=== PATIENT | male | born 1950 | race Caucasian/White ===

== ENCOUNTER 2019-03-10 09:38 | Day surgery (SDC) | payer MEDICARE, BC ==
[~2019-03-10] VITALS: Ht 180.3 cm; Wt 97.7 kg
[2019-03-10 09:57] LABS: HEMATOCRIT 42.2 % (42.0-54.0); MCH 33.8 pg (26.0-34.0); MCHC 35.5 g/dL (31.0-37.0); MEAN PLATELET VOLUME 11.4 fL (7.4-10.4); RBC 4.44 10x6/uL (4.20-6.10); RDW 12.9 % (11.5-14.5); WBC 8.7 10x3/uL (4.8-10.8)
[2019-03-10 10:06] LABS: ANION GAP 12.9 mmol/L (8-16); CALCIUM 9.2 mg/dL (8.5-10.1); CARBON DIOXIDE 28.8 mmol/L (21.0-32.0); CREATININE - SERUM 1.1 mg/dL (0.6-1.3); POTASSIUM - SERUM 4.7 mmol/L (3.5-5.1)
[2019-03-10] MEDS ORDERED: LISINOPRIL10 MG PO (13:00)
[2019-03-10] MEDS ORDERED: LEVOTHYROXINE150 MCG PO (13:00)
[2019-03-10] MEDS ORDERED: CYMBALTA60 MG PO (13:01)
[2019-03-10] MEDS ORDERED: GLUCOPHAGE500 MG PO (13:01)
[2019-03-10] MEDS ORDERED: ZOCOR20 MG PO (13:02)
[2019-03-10] MEDS ORDERED: ULTRAM50 MG PO (13:03)
[2019-03-10] MEDS ORDERED: EFFEXOR XR37.5 MG PO (13:04)
[2019-03-10 13:28] VITALS: BP 152/83; Ht 180.3 cm; Wt 97.7 kg
--- NOTE | 2019-03-13 17:12 | OP ---
PATIENT NAME: BALWINDER ROB MEDICAL RECORD: [id number] :50 LOCATION:D.[facility] ADMISSION DATE: SURGEON: TIGRE VAIL MD DATE OF OPERATION: 03/10/2019 PREOPERATIVE DIAGNOSIS: History of a cecal polyp as well as a polyp on the ileocecal valve. POSTOPERATIVE DIAGNOSES: 1. History of a cecal polyp as well as a polyp on the ileocecal valve, with regrowth of the cecal polyp, but no regrowth of the ileocecal valve polyp. 2. A total of 6 other polyps, which were ablated. PROCEDURES: 1. Total colonoscopy to cecum. 2. Hot biopsy forceps polypectomies times 2. 3. Ablation of colorectal polyps times 6 with the argon plasma through operator. 4. Placement of 2 endoscopic clips for hemostasis. SURGEON: Tigre Vail MD GEODUCK DIVER: None. BLOOD LOSS: Minimal. ANESTHESIA: IV sedation. COMPLICATIONS: None. The risks, possible complications and alternatives to the procedure were explained to the patient. He elects to proceed. The discussion specifically included, but was not limited to, bleeding requiring emergency reoperation, and endoscopic perforation. ENDOSCOPIC COURSE: The patient was conveyed to endoscopy suite electively on 03/10/2019. IV sedation was induced by the anesthesia staff. The patient was placed in the Vazquez position. A digital rectal examination was performed. A colonoscope was inserted through the anus. It was easily advanced to the cecum. Upon withdrawal, I irrigated and aspirated extensively. The prep was inadequate. I intubated the ileum and it appeared normal. It was an Endoscopic clip on the cecum. At the base of the endoscopic clip, there was a recurrent and/or persistent polypoid tissue. Cold endoscopic biopsies were performed. A hot biopsy forceps polypectomy was then performed. There was some bleeding and I tried to control this with the argon plasma through operator. Ultimately, this required placement of 2 endoscopic clips. I slowly withdrew the endoscope. I used a combination of normal imaging and narrow band imaging. I dragged the folds. I irrigated and aspirated extensively. The pullback was greater than 18-minute pullback. A total of 6 small polyps, all less than 8 mm and all sessile were ablated with the argon plasma through operator utilizing the right colon setting in the forced mode. A polyp was noted at 50 cm. This was removed utilizing hot biopsy forceps polypectomy technique. A retroflexed view was obtained in the rectum. I then unretroflexed the scope and removed it under direct vision. OPERATIVE REPORT [id number] BALWINDER ROB I will see the patient in my office in 2-3 weeks. I will plan for his next colonoscopy to take place in 1 year. TRANSINT:[id number] Voice Confirmation ID: [id number] DOCUMENT ID: [id number] TIGRE VAIL MD at 1712 CC: [id number] DICTATION DATE: 03/10/19 1633 ENGINE LATHE SET UP OPERATOR TOOL: 03/11/19 0037 [facility] 03/10/19 [id number] [place] [address]
== END 2019-03-10 19:48 | disposition home or self-care (01) ==
LOC: D.OPS 09:38
PROVIDERS: Anesthesiology; ATTEND Surgery
DX: D12.5 Benign neoplasm of sigmoid colon (principal); K63.5 Polyp of colon; Z01.812 Encounter for preprocedural laboratory examination

== ENCOUNTER 2020-02-16 09:54 | Day surgery (SDC) | payer MEDICARE, BC ==
[~2020-02-16] VITALS: Ht 182.9 cm; Wt 99.1 kg
--- NOTE | ~2020-02-16 | OP ---
PATIENT NAME: BALWINDER ROB MEDICAL RECORD: [id number] :50 LOCATION:D.[facility] ADMISSION DATE: SURGEON: GORDON VAIL MD DATE OF OPERATION: 02/16/2020 PREOPERATIVE DIAGNOSIS: History of colon polyps, in need of surveillance colonoscopy. POSTOPERATIVE DIAGNOSES: 1. History of colon polyps, in need of surveillance colonoscopy. 2. No regrowth of the cecal polyp and the clip that was present has fallen off. 3. Inadequate prep. 4. Multiple lower colon and rectal polyps, all sessile polyps, all less than 1 cm. 5. One polyp that appeared to be a serrated adenoma. PROCEDURES: 1. Total colonoscopy to cecum. 2. Hot biopsy forceps polypectomy times 1. 3. Ablation of 20 sessile polyps with the argon plasma leaf conditioner helper with the right colon setting in the forced mode. The risks, possible complications and alternatives to the procedure were explained to the patient. He elects to proceed. The discussion specifically included, but was not limited to, bleeding requiring emergency reoperation, infection, endoscopic perforation. OPERATIVE COURSE: The patient was conveyed to the operating room electively on 02/16/2020. General anesthesia was induced by anesthesia staff. The patient was placed in the Vazquez position. A digital rectal examination was performed. The prostate was symmetric and without nodules. A colonoscope was inserted through the anus. It was easily advanced to the cecum. The prep was inadequate at the right side of the colon. I irrigated and aspirated extensively. I dragged the folds. The pullback was greater than a 20-minute pullback. I noted one polyp that appeared to be a serrated adenoma. It was removed in its entirety utilizing the hot biopsy forceps polypectomy technique. In the lower colon and rectum, multiple sessile polyps were noted. These were so small they did not warrant biopsy and examination pathologically. They were best seen with narrow band imaging. I ablated 20 these polyps with the argon plasma leaf conditioner helper utilizing the right colon setting in the forced mode. A retroflexed view was obtained in the rectum. I then unretroflexed the scope and removed it under direct vision. I will see the patient in my office in 2-3 weeks. I will plan for his next colonoscopy to take place in 3 years. TRANSINT:[id number] Voice Confirmation ID: [id number] DOCUMENT ID: [id number] OPERATIVE REPORT [id number] BALWINDER ROB ROBERT MD CC: MARIA L GARCIA MD [id number] DICTATION DATE: 02/16/20 1256 PHOTO MASK PATTERN GENERATOR: 02/17/20 0010 [facility] [place] 02/16/20 [id number] [place] [address]
--- NOTE | ~2020-02-16 | HP ---
PATIENT: BALWINDRE ROB MEDICAL RECORD: [id number] ACCOUNT: [id number] LOCATION:[facility] : 50 ADMISSION DATE: 02/16/20 PCP: MARIA L GARCIA MD HISTORY AND PHYSICAL EXAMINATION CHIEF COMPLAINT: History of polyp. HISTORY OF PRESENT ILLNESS: The patient had a recurrent cecal polyp as well as a polyp on the ileocecal valve. There have been regrowth of the cecal polyp but no regrowth of the ileocecal valve polyp when I did his endoscopy about a year ago on 03/10/2019. Also, ablated 6 colorectal polyps. At that time, the pathology on the cecal polyp was fragments of a hyperplastic polyp. There was another polyp at 40 cm, which was a tubular adenoma and a part of a serrated adenoma. He has had no symptoms. No melena. No hematochezia. He is here for surveillance colonoscopy. HOME MEDICINES: Lisinopril, metformin, Cymbalta, tramadol, levothyroxine. ALLERGIES: No known drug allergies. SOCIAL HISTORY: Smoker. The patient uses medical marijuana. PAST MEDICAL AND SURGICAL HISTORY: Sleep apnea, hypertension, noninsulin-dependent diabetes mellitus, history of thyroidectomy. PHYSICAL EXAMINATION: GENERAL: The patient does not appear acutely ill. He does not appear chronically ill. VITAL SIGNS: Reviewed. EARS: External ears appear normal. EYES: Extraocular movements are intact. NECK: Trachea is midline. CHEST: No intercostal retractions. PULMONARY: Nonlabored, no stridor. IMPRESSION: History of colon polyps including a recurrent polyp in cecum. PLAN: Colonoscopy. TRANSINT:[id number] Voice Confirmation ID: [id number] DOCUMENT ID: [id number] GORDON VAIL MD CC: MARIA L GARCIA MD [id number] DICTATION DATE: 02/16/20 1210 TRAVELING SALES EXECUTIVE: 02/16/20 1603 [facility] [place] 02/16/20 [facility] [address] [place] [address]
[~2020-02-16 09:54] MED LIST: CYMBALTA60 MG PO; EFFEXOR XR37.5 MG PO; GLUCOPHAGE500 MG PO; LEVOTHYROXINE150 MCG PO; LISINOPRIL10 MG PO; ULTRAM50 MG PO; ZOCOR20 MG PO
[2020-02-16 10:08] LABS: BASOPHILS 0.2 % (0-2); EOSINOPHILS 1.7 % (0-7); HEMATOCRIT 48.3 % (42.0-54.0); IMMATURE GRANULOCYTES 0.7 % (0-5); LYMPHOCYTES 26.9 % (15-50); MCH 32.1 pg (26.0-34.0); MCHC 33.1 g/dL (31.0-37.0); MCV 96.8 fL (80.0-100.0); MEAN PLATELET VOLUME 11.2 fL (7.4-10.4); MONOCYTES 11.4 % (2-11); NEUTROPHILS 59.1 % (40-80); PLATELET COUNT 265 10x3/uL (130-400); RBC 4.99 10x6/uL (4.20-6.10); RDW 13.6 % (11.5-14.5); WBC 11.5 10x3/uL (4.8-10.8)
[2020-02-16 10:25] LABS: ANION GAP 13.9 mmol/L (8-16); CALCIUM 9.4 mg/dL (8.5-10.1); CARBON DIOXIDE 28.7 mmol/L (21.0-32.0); CREATININE - SERUM 1.5 mg/dL (0.6-1.3); POTASSIUM - SERUM 4.6 mmol/L (3.5-5.1)
[2020-02-16 10:44] VITALS: BP 153/90; Ht 182.9 cm; Wt 99.1 kg
--- NOTE | 2020-02-16 13:45 | NUR ---
PT DC INSTRUCTIONS REVIEWED AT THIS TIME, PT AND FAMILY VERBALIZE UNDERSTANDING. PT IV REMOVED AT THIS TIME, INTACT, NO REDNESS OR SWELLING NOTED AT SITE.
--- NOTE | 2020-02-16 13:50 | NUR ---
PT LEAVING OPS AT THIS TIME VIA WC, NAD NOTED, PT HAS NO COMPLAINTS AT THIS TIME.
--- NOTE | 2020-02-16 14:47 | NUR ---
ASSUMED CARE FROM HANANE KING, REPORT RECIEVED FROM HANANE KING.
== END 2020-02-16 13:50 | disposition home or self-care (01) ==
LOC: D.OPS 09:54
PROVIDERS: Anesthesiology; ATTEND Surgery
DX: Z86.010 Personal history of colon polyps (principal); K63.5 Polyp of colon; K62.1 Rectal polyp; I10 Essential (primary) hypertension; E11.9 Type 2 diabetes mellitus without complications; Z79.84 Long term (current) use of oral hypoglycemic drugs; Z72.0 Tobacco use